=== PATIENT | male | born 1965 | race Caucasian/White ===

== ENCOUNTER 2017-07-21 15:13 | Inpatient (IN) ==
[2017-07-21] MEDS ORDERED: ONDANSETRON 4 MG/2 ML VIAL IV PRN (15:34)
[2017-07-21] MEDS ORDERED: METOPROLOL TARTRATE 5 MG/5 ML VIAL IV STA (15:34)
[2017-07-21] MEDS ORDERED: MORPHINE 2 MG/1 ML SYRINGE IV PRN (15:34)
[2017-07-21] MEDS ORDERED: NITROGLYCERIN SL 0.4 MG TABLET SL PRN (15:34)
[2017-07-21] MEDS ORDERED: ASPIRIN 325 MG TABLET PO STA (15:34)
[2017-07-21] MEDS ORDERED: NITROGLYCERIN 2% OINT 1 INCH/GM PACK TOP STA (15:34)
[2017-07-21] MEDS ORDERED: METOPROLOL TARTRATE 5 MG/5 ML VIAL IV ONE (16:07)
[2017-07-21] MEDS ORDERED: ASPIRIN 325 MG TABLET ONE (16:07)
[2017-07-21] MEDS ORDERED: NITROGLYCERIN 2% OINT 1 INCH/GM PACK TOP ONE (16:07)
[2017-07-21 16:33] LABS: PT Patient Result 10.1 SECS; Partial Thromboplastin Time 25.4 SECS (0-40)
[2017-07-21 16:37] LABS: Albumin 3.7 G/DL (3.4-5.0); Bilirubin,Total 0.7 MG/DL (0.2-1.0); Calcium 8.5 MG/DL (8.5-10.1); Osmolality,Calculated 286.2 MOS/KG (273-304); Total Protein 6.8 G/DL (6.4-8.3)
[2017-07-21 16:39] LABS: Basophils % 0.7 % (0.0-0.8); Eosinophils % 0.7 % (0.00-10.9); Hematocrit 47.6 VOL% (42.0-52.0); Immature Granulocytes % 0.9 %; Immature Granulocytes Absolute 0.04 #; Lymphocytes # 1.1 10*3/uL (1.4-4.0); Lymphocytes % 26.2 % (21.2-54.2); Mean Corpuscular Hemoglobin 31 PG (27-34); Mean Corpuscular Volume 81.1 FL (87-102); Mean Platelet Volume 11.6 FL (9.6-12.0); Monocytes # 0.5 10*3/uL (0.11-0.8); Monocytes % 11.7 % (1.7-12.7); Neutrophils # 2.6 10*3/uL (1.4-7.4); Neutrophils % 59.8 % (38.7-73.9); Platelet Count 146 T/CUMM (130-400); Red Blood Count 5.87 MC/CUMM (3.8-5.5); Red Cell Distribution Width 13.2 % (9.3-17.3); White Blood Count 4.3 T/CUMM (4-12)
[2017-07-21 16:43] LABS: Hemoglobin 18.1 GM/DL (14.0-18.0)
[2017-07-21] MEDS ORDERED: INSULIN REGULAR 100 UNIT/ML SUBCUT ONE (17:33)
[2017-07-21] MEDS ORDERED: MAGNESIUM SULF RIDER 4 GM in PREMIX 1 EACH IV PRN (17:33)
[2017-07-21] MEDS ORDERED: ALUM/MAG/SIMETH/LIDO VISC 1:1 30 ML BOTTLE PO PRN (17:33)
[2017-07-21] MEDS ORDERED: MAGNESIUM SULF RIDER 2 GM in PREMIX 1 EACH IV PRN (17:33)
[2017-07-21 17:47] LABS: Platelet Estimate Normal; Poikilocytosis 1+; Tear Drop Cells Few
[2017-07-21] MEDS ORDERED: GLUCAGON 1 MG VIAL IM PRN (18:24)
[2017-07-21] MEDS ORDERED: DEXTROSE 50% 25 GM/50 ML VIAL IV PRN (18:24)
[2017-07-21 18:34] LABS: Risk Ratio 8.57
[2017-07-21] MEDS: FAMOTIDINE 20 MG TABLET PO SCH (21:07)
[2017-07-21] MEDS: OMEGA 3 ACID ETHYL ESTERS 1 GM CAPSULE PO SCH (21:07)
[2017-07-21] MEDS: METOPROLOL TARTRATE 25 MG TABLET PO SCH (21:08)
[2017-07-21] MEDS: INSULIN REGULAR 100 UNIT/ML SUBCUT SCH (21:08)
[2017-07-21] MEDS ORDERED: ACETAMINOPHEN 500 MG TABLET PO PRN (21:36)
[2017-07-22] MEDS: INSULIN REGULAR 100 UNIT/ML SUBCUT SCH ×4 (09:36→21:35)
[2017-07-22] MEDS: OLMESARTAN 20 MG TABLET PO SCH (09:36)
[2017-07-22] MEDS: FAMOTIDINE 20 MG TABLET PO SCH ×2 (09:37→21:32)
[2017-07-22] MEDS: ATORVASTATIN 80 MG TABLET PO SCH (09:37)
[2017-07-22] MEDS: METOPROLOL TARTRATE 25 MG TABLET PO SCH ×2 (09:37→21:32)
[2017-07-22] MEDS: OMEGA 3 ACID ETHYL ESTERS 1 GM CAPSULE PO SCH ×2 (09:37→21:32)
[2017-07-22] MEDS: ASPIRIN EC 81 MG TABLET PO SCH (09:37)
[2017-07-22] MEDS ORDERED: DEXTROSE 50% 25 GM/50 ML VIAL IV PRN (15:55)
[2017-07-22] MEDS ORDERED: GLUCAGON 1 MG VIAL IM PRN (15:55)
[2017-07-22] MEDS ORDERED: MAGNESIUM SULF RIDER 2 GM in PREMIX 1 EACH IV PRN (16:15)
[2017-07-22] MEDS ORDERED: POTASSIUM CHLORIDE RIDER 10 MEQ in PREMIX 1 EACH IV PRN (16:15)
[2017-07-22] MEDS: SODIUM CHLORIDE 0.9% 1,000 ML IV SCH (18:24)
[2017-07-22] MEDS: LISINOPRIL 2.5 MG TABLET PO SCH (18:40)
[2017-07-22] MEDS ORDERED: ASPIRIN 325 MG TABLET PO ONE (20:48)
[2017-07-22] MEDS: INSULIN GLARGINE 100 UNIT/ML SUBCUT SCH (21:35)
[2017-07-23] MEDS: SODIUM CHLORIDE 0.9% 1,000 ML IV SCH ×3 (02:09→11:51)
[2017-07-23 06:15] LABS: Calcium 8.1 MG/DL (8.5-10.1); Magnesium 1.9 MG/DL (1.8-2.4); Osmolality,Calculated 280.1 MOS/KG (273-304); Potassium 3.8 MMOL/L (3.5-5.1)
[2017-07-23 06:56] LABS: Basophils % 0.8 % (0.0-0.8); Eosinophils # 0.1 10*3/uL (0.0-0.87); Eosinophils % 2.3 % (0.00-10.9); Hemoglobin 16.2 GM/DL (14.0-18.0); Immature Granulocytes % 1.3 %; Immature Granulocytes Absolute 0.05 #; Lymphocytes # 1.4 10*3/uL (1.4-4.0); Lymphocytes % 35.6 % (21.2-54.2); Mean Corpuscular HGB Conc 37.6 GM/DL (32-36); Mean Corpuscular Hemoglobin 31 PG (27-34); Mean Platelet Volume 12.5 FL (9.6-12.0); Monocytes # 0.5 10*3/uL (0.11-0.8); Monocytes % 12.6 % (1.7-12.7); Neutrophils # 1.9 10*3/uL (1.4-7.4); Neutrophils % 47.4 % (38.7-73.9); Platelet Count 243 T/CUMM (130-400); Red Blood Count 5.19 MC/CUMM (3.8-5.5); Red Cell Distribution Width 13.4 % (9.3-17.3); White Blood Count 3.9 T/CUMM (4-12)
[2017-07-23 06:57] LABS: Hematocrit 43.1 VOL% (42.0-52.0)
[2017-07-23 07:00] LABS: Hypochromasia 1+; Platelet Estimate Normal
[2017-07-23] MEDS ORDERED: DIAZEPAM 5 MG TABLET PO ONE (07:00)
[2017-07-23] MEDS ORDERED: ASPIRIN 325 MG TABLET PO ONE (07:00)
[2017-07-23] MEDS ORDERED: diphenhydrAMINE CAP 25 MG CAPSULE PO ONE (07:00)
[2017-07-23] MEDS: ATORVASTATIN 80 MG TABLET PO SCH (08:05)
[2017-07-23] MEDS: FAMOTIDINE 20 MG TABLET PO SCH ×2 (08:05→21:17)
[2017-07-23] MEDS: METOPROLOL TARTRATE 25 MG TABLET PO SCH ×2 (08:05→21:17)
[2017-07-23] MEDS: OMEGA 3 ACID ETHYL ESTERS 1 GM CAPSULE PO SCH ×2 (08:05→21:17)
[2017-07-23] MEDS: ASPIRIN EC 81 MG TABLET PO SCH (08:05)
[2017-07-23] MEDS: OLMESARTAN 20 MG TABLET PO SCH (08:05)
[2017-07-23] MEDS: LISINOPRIL 2.5 MG TABLET PO SCH (08:06)
[2017-07-23] MEDS: INSULIN REGULAR 100 UNIT/ML SUBCUT SCH ×4 (08:07→21:18)
[2017-07-23] MEDS ORDERED: LIDOCAINE 1% 20 ML VIAL ONE (09:36)
[2017-07-23] MEDS ORDERED: MEPERIDINE 25 MG/1 ML VIAL ONE (09:46)
[2017-07-23] MEDS ORDERED: MIDAZOLAM 2 MG/2 ML VIAL ONE (09:46)
[2017-07-23] MEDS ORDERED: HEPARIN 5,000 UNIT/1 ML VIAL ONE (10:23)
[2017-07-23] MEDS: INSULIN GLARGINE 100 UNIT/ML SUBCUT SCH (21:18)
[2017-07-24 05:52] LABS: Basophils % 0.7 % (0.0-0.8); Eosinophils # 0.1 10*3/uL (0.0-0.87); Eosinophils % 1.4 % (0.00-10.9); Hematocrit 42.4 VOL% (42.0-52.0); Immature Granulocytes % 0.9 %; Immature Granulocytes Absolute 0.04 #; Lymphocytes # 1.2 10*3/uL (1.4-4.0); Lymphocytes % 29.3 % (21.2-54.2); Mean Corpuscular HGB Conc 37.3 GM/DL (32-36); Mean Corpuscular Hemoglobin 31 PG (27-34); Mean Corpuscular Volume 81.9 FL (87-102); Mean Platelet Volume 11.4 FL (9.6-12.0); Monocytes # 0.5 10*3/uL (0.11-0.8); Monocytes % 11.8 % (1.7-12.7); Neutrophils # 2.4 10*3/uL (1.4-7.4); Neutrophils % 55.9 % (38.7-73.9); Red Blood Count 5.18 MC/CUMM (3.8-5.5); White Blood Count 4.2 T/CUMM (4-12)
[2017-07-24 06:14] LABS: Calcium 7.8 MG/DL (8.5-10.1); Osmolality,Calculated 278.1 MOS/KG (273-304)
[2017-07-24 06:36] LABS: Hemoglobin 15.8 GM/DL (14.0-18.0); Platelet Count 113 T/CUMM (130-400)
[2017-07-24 08:30] VITALS: BP 122/93
[2017-07-24] MEDS: LISINOPRIL 2.5 MG TABLET PO SCH (09:35)
[2017-07-24] MEDS: METOPROLOL TARTRATE 25 MG TABLET PO SCH (09:35)
[2017-07-24] MEDS: OLMESARTAN 20 MG TABLET PO SCH (09:36)
[2017-07-24] MEDS: ASPIRIN EC 81 MG TABLET PO SCH (09:36)
[2017-07-24] MEDS: ATORVASTATIN 80 MG TABLET PO SCH (09:36)
[2017-07-24] MEDS: INSULIN REGULAR 100 UNIT/ML SUBCUT SCH (09:36)
[2017-07-24] MEDS: OMEGA 3 ACID ETHYL ESTERS 1 GM CAPSULE PO SCH (09:36)
[2017-07-24] MEDS: FAMOTIDINE 20 MG TABLET PO SCH (09:36)
== END 2017-07-24 10:50 | disposition home or self-care (01) | DRG 287 ==
LOC: N.ED 15:13 → N.EDINP 17:29 → N.TELEN 18:18
PROVIDERS: ADMIT Hospitalist; ATTEND Hospitalist
PROC: CLCCHCL (ICD-10-PCS; 2017-07-23 09:45)

== ENCOUNTER 2022-10-23 13:07 | Observation (INO) ==
[2022-10-23 13:39] LABS: Basophils % 0.7 % (0.0-0.8); Eosinophils # 0.1 10*3/uL (0.0-0.87); Eosinophils % 1.1 % (0.00-10.9); Hematocrit 53.3 VOL% (42.0-52.0); Hemoglobin 18.5 GM/DL (14.0-18.0); Immature Granulocytes % 1.5 %; Immature Granulocytes Absolute 0.08 #; Lymphocytes # 1.4 10*3/uL (1.4-4.0); Lymphocytes % 26.4 % (21.2-54.2); Mean Corpuscular HGB Conc 34.7 GM/DL (32-36); Mean Corpuscular Volume 86.1 FL (87-102); Mean Platelet Volume 10.4 FL (9.6-12.0); Monocytes # 0.6 10*3/uL (0.11-0.8); Monocytes % 10.3 % (1.7-12.7); Platelet Count 158 T/CUMM (130-400); Red Blood Count 6.19 MC/CUMM (3.8-5.5); Red Cell Distribution Width 13.7 % (9.3-17.3); White Blood Count 5.35 T/CUMM (4-12)
[2022-10-23 14:14] LABS: Albumin 4.1 G/DL (3.4-5.0); Bilirubin,Total 0.5 MG/DL (0.20-1.00); Calcium 9.5 MG/DL (8.5-10.1); Osmolality,Calculated 278.8 MOS/KG (273-304); Potassium 4.5 MMOL/L (3.5-5.1); Total Protein 7.7 G/DL (6.4-8.2)
[2022-10-23] MEDS ORDERED: CALCIUM CARBONATE CHEW 500 MG TABLET PO PRN (15:50)
[2022-10-23] MEDS ORDERED: ONDANSETRON 4 MG/2 ML VIAL IV PRN (15:50)
[2022-10-23] MEDS ORDERED: DOCUSATE SODIUM 100 MG CAPSULE PO PRN (15:50)
[2022-10-23] MEDS ORDERED: ALUMINUM/MAGNES/SIMETH MAX STR 30 ML UDCUP PO PRN (15:50)
[2022-10-23] MEDS ORDERED: ZALEPLON 5 MG CAPSULE PO PRN (15:50)
[2022-10-23] MEDS ORDERED: LACTULOSE 20 GM/30 ML UDCUP PO PRN (15:50)
[2022-10-23] MEDS ORDERED: MORPHINE 2 MG/1 ML SYRINGE IV PRN (15:50)
[2022-10-23] MEDS ORDERED: SIMETHICONE CHEW 125 MG TABLET PO PRN (15:50)
[2022-10-23] MEDS ORDERED: ACETAMINOPHEN 325 MG TABLET PO PRN (15:50)
[2022-10-23] MEDS ORDERED: GLUCAGON 1 MG VIAL IM PRN (15:56)
[2022-10-23] MEDS ORDERED: ENOXAPARIN 40 MG/0.4 ML SYRINGE SUBCUT SCH (16:00)
[2022-10-23] MEDS ORDERED: DEXTROSE 10% 250 ML BAG IV PRN (16:03)
[2022-10-23] MEDS: INSULIN LISPRO 100 UNIT/ML SUBCUT SCH ×2 (18:23→21:20)
[2022-10-23] MEDS ORDERED: OMEGA 3 ACID ETHYL ESTERS 1 GM CAPSULE PO SCH (21:00)
[2022-10-23] MEDS ORDERED: MELATONIN 3 MG TABLET PO SCH (21:00)
[2022-10-23] MEDS: METOPROLOL TARTRATE 50 MG TABLET PO SCH (21:18)
[2022-10-23] MEDS: FAMOTIDINE 20 MG TABLET PO SCH (21:18)
[2022-10-23] MEDS: GLIMEPIRIDE 4 MG TABLET PO SCH (21:19)
[2022-10-24 05:25] LABS: Basophils % 0.9 % (0.0-0.8); Eosinophils # 0.1 10*3/uL (0.0-0.87); Eosinophils % 2.2 % (0.00-10.9); Hemoglobin 17.5 GM/DL (14.0-18.0); Immature Granulocytes % 0.4 %; Immature Granulocytes Absolute 0.02 #; Lymphocytes # 1.6 10*3/uL (1.4-4.0); Lymphocytes % 35.5 % (21.2-54.2); Mean Corpuscular HGB Conc 35.7 GM/DL (32-36); Mean Corpuscular Volume 85.7 FL (87-102); Mean Platelet Volume 10.7 FL (9.6-12.0); Monocytes # 0.6 10*3/uL (0.11-0.8); Monocytes % 12.9 % (1.7-12.7); Neutrophils % 48.1 % (38.7-73.9); Platelet Count 157 T/CUMM (130-400); Red Blood Count 5.72 MC/CUMM (3.8-5.5); Red Cell Distribution Width 13.7 % (9.3-17.3); White Blood Count 4.51 T/CUMM (4-12)
[2022-10-24 06:08] LABS: Calcium 8.6 MG/DL (8.5-10.1); Osmolality,Calculated 281.8 MOS/KG (273-304); Potassium 4.2 MMOL/L (3.5-5.1); Thyroid Stimulating Hormone 1.89 uIU/ml (0.358-3.74)
[2022-10-24] MEDS: INSULIN LISPRO 100 UNIT/ML SUBCUT SCH (08:58)
[2022-10-24] MEDS: FAMOTIDINE 20 MG TABLET PO SCH (08:59)
[2022-10-24] MEDS: METOPROLOL TARTRATE 50 MG TABLET PO SCH (08:59)
[2022-10-24] MEDS: GLIMEPIRIDE 4 MG TABLET PO SCH (08:59)
[2022-10-24] MEDS ORDERED: PANTOPRAZOLE 40 MG TABLET PO SCH (09:00)
[2022-10-24] MEDS ORDERED: OLMESARTAN 20 MG TABLET PO SCH (09:00)
[2022-10-24] MEDS ORDERED: ASPIRIN EC 81 MG TABLET PO SCH (09:00)
[2022-10-24] MEDS ORDERED: DAPAGLIFLOZIN 10 MG TABLET PO SCH (09:00)
[2022-10-24 09:17] VITALS: BP 144/72
[2022-10-26] MEDS ORDERED: Semaglutide [Ozempic] 0.25 mg or 0.5 mg(2 mg/1.5 mL) Pen Injecto SUBCUT SCH (09:00)
== END 2022-10-24 11:53 | disposition home or self-care (01) ==
LOC: N.ED 13:07 → N.EDINP 13:07 → N.2W 18:00
PROVIDERS: ADMIT Internal Medicine Cardiovascular Disease; ATTEND Internal Medicine Cardiovascular Disease